=== PATIENT | female | born 1975 | race Caucasian/White ===

== ENCOUNTER → 2024-01-30 12:17 | Outpatient (CLI) | payer OTHER, SELFPAY ==
--- NOTE | 2024-01-30 12:21 | DI.MRI.S_ITS ---
PROCEDURE: MR KNEE LT WO CON INDICATIONS: Unspecified internal derangement of left knee TECHNIQUE: Noncontrast sagittal PD fast spin echo and T2 fast spin echo with fat saturation, sagittal 3-D FLASH with fat saturation; coronal T1 spin echo and PD fast spin echo with fat saturation, and axial PD fast spin echo with fat saturation through the knee. COMPARISON: [facility], CR, XR KNEE 3 VIEWS LEFT, 01/28/2024, 9:42. FINDINGS: Image quality: Excellent. Anterior cruciate ligament: Intact. Posterior cruciate ligament: Intact. Medial collateral ligament: Intact. Lateral collateral ligament: Intact. Medial meniscus: Intact. Lateral meniscus: Partial discoid appearance of the lateral meniscus, a normal variant. There is horizontal oblique tearing of the posterior horn of the lateral meniscus extending to the outer third of the tibial articular surface. Medial and lateral tendons: The semimembranosus tendon insertions appear intact. Visualized portions of the pes anserinus tendons appear normal. The popliteus tendon is intact. Iliotibial band appears normal. Anterior structures: Mild proximal patellar tendinosis. Distal quadriceps tendon is intact. No patellar subluxation. No femoral trochlear dysplasia or ventral trochlear prominence. No edema in the infrapatellar fat pad. Bones and cartilage: No bone marrow contusions or fractures. Medial femorotibial cartilage: Large area high-grade versus full-thickness cartilage loss throughout the weight-bearing portion of the medial femorotibial compartment with marginal osteophyte formation. Lateral femorotibial cartilage: Full-thickness cartilage loss is seen at the posterior weight-bearing portion of the lateral femoral condyle with marginal osteophyte formation. Patellofemoral cartilage: Full-thickness cartilage loss is seen at the median ridge and lateral facet of the patella with subchondral cystic changes. There is high-grade cartilage loss in the femoral trochlea and likely are full-thickness cartilage loss at the lateral femoral trochlea with subchondral osteophyte formation. Small marginal osteophytes are present. Soft tissues: Suspected linear intermediate signal intensity filling defect along the anterior medial aspect of the medial femoral condyle measuring 15 x 3 x 3 mm, suspicious for chondral loose body. A 6 mm ovoid loose body is seen posterior to the intercondylar notch. Intermediate signal ganglion cyst is seen adjacent to the origins of the medial and lateral heads of the gastrocnemius muscle. Small intra-articular loose body posterior to the medial femoral condyle. Trace medial popliteal cyst. Fluid is seen tracking along the popliteus tendon sheath. The musculature surrounding the knee is normal in bulk. Moderate to large joint effusion. IMPRESSION: 1. Tricompartmental osteoarthrosis with areas of full-thickness cartilage loss in all 3 compartments. Tricompartmental marginal osteophyte formation. 2. Partial discoid lateral meniscus with focal horizontal oblique tearing of the posterior horn extending to the outer third of the tibial articular surface. 3. Mild proximal patellar tendinosis. 4. No acute trabecular bone injury. Cruciate and collateral ligaments are intact. 5. Moderate to large joint effusion with multiple intra-articular loose bodies. on 01/30/2024 at 21:07 Approved by: Hong Clarke M.D. on 01/30/2024 at 21:07
== END ==
PROVIDERS: Referring Provider Physician Assistant; Visit Provider Physician Assistant
DX: S83.282A Other tear of lateral meniscus, current injury, left knee, initial encounter (principal); M17.12 Unilateral primary osteoarthritis, left knee; M23.42 Loose body in knee, left knee; M67.462 Ganglion, left knee; M25.462 Effusion, left knee
CPT/HCPCS: 73721